=== PATIENT | female | born 1965 | race Caucasian/White ===

== ENCOUNTER → 2016-07-25 | Outpatient (CLI) | payer BC ==
--- NOTE | 2016-07-27 08:00 | MM ---
Reason for exam: screening (asymptomatic). Last mammogram was performed 1 year and 1 month ago. History: Family history of breast cancer in mother at age 76 and breast cancer in aunt. Physical Findings: A clinical breast exam by your physician is recommended on an annual basis and results should be correlated with mammographic findings. MG Screening Mammo w CAD Bilateral CC and MLO view(s) were taken. Prior study comparison: June 17, 2015, bilateral MG screening mammo w CAD. December 04, 2013, bilateral MG screening mammo w CAD. February 28, 2011, bilateral digital screening mammo w/CAD. The breast tissue is heterogeneously dense. This may lower the sensitivity of mammography. No significant changes when compared with prior studies. ASSESSMENT: Negative, BI-RAD 1 RECOMMENDATION: Routine screening mammogram of both breasts in 1 year.
== END | disposition home or self-care (01) ==
LOC: RADMAMWWP 16:49
PROVIDERS: ATTEND Obstetrics & Gynecology
DX: Z12.31 Encounter for screening mammogram for malignant neoplasm of breast (principal)

== ENCOUNTER → 2019-12-10 | Outpatient (CLI) | payer OTHER ==
--- NOTE | 2019-12-14 14:05 | MM ---
Reason for exam: screening (asymptomatic). Last mammogram was performed 2 years and 2 months ago. History: Family history of breast cancer in mother at age 76 and breast cancer in aunt. Physical Findings: A clinical breast exam by your physician is recommended on an annual basis and results should be correlated with mammographic findings. MG Screening Mammo w CAD Bilateral CC and MLO view(s) were taken. Prior study comparison: October 18, 2017, bilateral MG screening mammo w CAD. July 25, 2016, bilateral MG screening mammo w CAD. The breast tissue is heterogeneously dense. This may lower the sensitivity of mammography. No significant changes when compared with prior studies. ASSESSMENT: Benign, BI-RAD 2 RECOMMENDATION: Routine screening mammogram of both breasts in 1 year.
== END | disposition home or self-care (01) ==
LOC: RADMAMWWP 11:05
PROVIDERS: ATTEND Family Medicine
DX: Z12.31 Encounter for screening mammogram for malignant neoplasm of breast (principal)
CPT/HCPCS: 77067

== ENCOUNTER 2020-09-10 11:37 | Emergency (ER) | payer OTHER ==
[2020-09-10 11:48] VITALS: BP 165/106; PULSE 96; RESP 20; TEMP 98
[2020-09-10] MEDS ORDERED: ACETAMINOPHEN TAB 500 MG TAB PO STA (11:55)
--- NOTE | 2020-09-10 12:59 | XR ---
EXAMINATION TYPE: XR knee complete RT DATE OF EXAM: 09/10/2020 CLINICAL HISTORY: pain TECHNIQUE: Three views of the right knee are obtained. COMPARISON: None. FINDINGS: There is no acute fracture/dislocation. The tri-compartment joint spaces appear mildly na rrowed. Spurring superior patellar pole. The overlying soft tissue appears unremarkable. IMPRESSION: There is no acute fracture or dislocation.ICD 10 NO FRACTURE, INITIAL EVALUATION
--- NOTE | 2020-09-10 13:02 | ED ---
Lower Extremity Injury HPI - General Chief Complaint: Extremity Injury, Lower Stated Complaint: rt knee pain Time Seen by Provider: 09/10/20 11:50 Source: patient, RN notes reviewed Mode of arrival: ambulatory Limitations: no limitations - History of Present Illness Initial Comments: Patient is a 55-year-old female that presents to emergency room complaining of right knee pain. She notes that several days ago she hit her knee on a truck trailer hitch. She notes that her knee locked up. She notes that she did have syncopal episode but believes is due to low blood sugars as she did not eat anything that day and her last meal was the previous night at dinner. She denied any other issues or complaints at this time. She denied any chest pain short of breath headache nausea vomiting diarrhea constipation fever fatigue chills she did report some pain on full flexion of the right knee. - Related Data Allergies Allergy/AdvReac Type Severity Reaction Status Date / Time cephalexin [From Keflex] Allergy Rash/Hives Verified 09/10/20 11:48 Review of Systems ROS Statement: Those systems with pertinent positive or pertinent negative responses have been documented in the HPI. ROS Other: All systems not noted in ROS Statement are negative. Past Medical History Past Medical History: No Reported History History of Any Multi-Drug Resistant Organisms: None Reported Past Surgical History: Tubal Ligation Past Psychological History: No Psychological Hx Reported Smoking Status: Never smoker Past Alcohol Use History: Occasional Past Drug Use History: None Reported General Exam Limitations: no limitations General appearance: alert, in no apparent distress Head exam: Present: atraumatic, normocephalic, normal inspection Eye exam: Present: normal appearance, PERRL, EOMI. Absent: scleral icterus, conjunctival injection, periorbital swelling Neck exam: Present: normal inspection Respiratory exam: Present: normal lung sounds bilaterally. Absent: respiratory distress, wheezes, rales, rhonchi, stridor Cardiovascular Exam: Present: regular rate, normal rhythm, normal heart sounds. Absent: systolic murmur, diastolic murmur, rubs, gallop, clicks Right Knee exam: Present: normal inspection, full ROM (Some minimal pain on full flexion), tenderness (Just proximal the patella over the quadriceps.), swelling (Enema). Absent: abrasion, laceration, ecchymosis, deformity, crepitus, dislocation, erythema Neurological exam: Present: alert, oriented X3 Psychiatric exam: Present: normal affect, normal mood Skin exam: Present: warm, dry, intact, normal color. Absent: rash Course Vital Signs 09/10/20 11:44 Temperature 98.0 F Pulse Rate 96 Respiratory 20 Rate Blood Pressure 165/106 O2 Sat by Pulse 99 Oximetry Medical Decision Making - Medical Decision Making 55-year-old female complaining of right knee pain after hitting a trailer hitch several days ago. X-ray of the right knee, 1000 g of Tylenol ordered. X-ray negative for any acute fractures or dislocations. Case discussed with Dr. Melgar, patient can discharge home with follow-up to orthopedist. - Radiology Data Radiology results: report reviewed, image reviewed X-ray of the right knee: No acute fractures or dislocation seen. Disposition Clinical Impression: Contusion of right knee Disposition: HOME SELF-CARE Condition: Stable Instructions (If sedation given, give patient instructions): Knee Pain (ED) Additional Instructions: Please return to the Emergency Department if symptoms worsen or any other concerns. Follow-up with primary care and orthopedist in the next 1-2 days. Take Tylenol and Motrin as needed for pain. Rest ice compress elevate Is patient prescribed a controlled substance at d/c from ED?: No Referrals: Jalen Christensen MD [Primary Care Provider] - 1-2 days Harley Alba MD [STAFF PHYSICIAN] - 1-2 days Time of Disposition: 13:06
== END 2020-09-10 13:46 | disposition home or self-care (01) ==
LOC: EC 11:37
DX: S80.01XA Contusion of right knee, initial encounter (principal); Z88.1 Allergy status to other antibiotic agents; W22.8XXA Striking against or struck by other objects, initial encounter
CPT/HCPCS: 99283

== ENCOUNTER 2020-11-08 10:59 | Emergency (ER) | payer OTHER ==
[2020-11-08 11:41] VITALS: RESP 18
[2020-11-08] MEDS ORDERED: SODIUM CHLORIDE 0.9% 500 ML 500 ML IV STA (11:58)
[2020-11-08] MEDS ORDERED: HYDROmorphone 0.5 MG/0.5 ML SYRINGE IVP STA (11:58)
--- NOTE | 2020-11-08 12:24 | ED ---
General Adult HPI - General Chief complaint: Abdominal Pain Stated complaint: abd pain Time Seen by Provider: 11/08/20 11:55 Source: patient, RN notes reviewed, old records reviewed Mode of arrival: ambulatory Limitations: no limitations - History of Present Illness Initial comments: 55-year-old female presenting for evaluation of epigastric pain, right upper quadrant pain. Symptoms have been present for the past 3 days. Pain radiates to both upper shoulders. She has no previous history of CAD but does have family history. She states that the pain began after consuming 5 alcoholic beverages. No fever but she has had chills. No vomiting. - Related Data Previous Rx's Medication Instructions Recorded HYDROcodone/APAP 5-325MG [[place] 1 tab PO Q6HR PRN #12 tab 11/08/20 5-325] Allergies Allergy/AdvReac Type Severity Reaction Status Date / Time cephalexin [From Keflex] Allergy Rash/Hives Verified 11/08/20 11:41 Review of Systems ROS Statement: Those systems with pertinent positive or pertinent negative responses have been documented in the HPI. ROS Other: All systems not noted in ROS Statement are negative. Past Medical History Past Medical History: GERD/Reflux, Thyroid Disorder History of Any Multi-Drug Resistant Organisms: None Reported Past Surgical History: Tubal Ligation Past Psychological History: Anxiety Smoking Status: Never smoker Past Alcohol Use History: Occasional Past Drug Use History: None Reported General Exam Limitations: no limitations General appearance: alert, in no apparent distress Head exam: Present: atraumatic, normocephalic Eye exam: Present: normal appearance, PERRL ENT exam: Present: normal exam Neck exam: Present: normal inspection. Absent: tenderness, meningismus Respiratory exam: Present: normal lung sounds bilaterally. Absent: respiratory distress, wheezes Cardiovascular Exam: Present: regular rate, normal rhythm GI/Abdominal exam: Present: soft, tenderness (epigastric and right upper quadrant). Absent: distended, guarding Extremities exam: Present: normal inspection, normal capillary refill. Absent: pedal edema Neurological exam: Present: alert, oriented X3, CN II-XII intact. Absent: motor sensory deficit Psychiatric exam: Present: normal affect, normal mood Skin exam: Present: warm, dry, intact. Absent: cyanosis, diaphoretic Course Vital Signs 11/08/20 11/08/20 11:33 12:16 Temperature 97.9 F Pulse Rate 99 89 Respiratory 18 18 Rate Blood Pressure 173/109 165/96 O2 Sat by Pulse 97 96 Oximetry EKG Findings - EKG Comments: EKG Findings:: UG: Normal sinus rhythm, LVH, rate of 89, CO interval 150, QRS duration 86, QTC 447, no ST segment elevation. Medical Decision Making - Medical Decision Making 55-year-old female with right upper quadrant and epigastric abdominal pain for the past 3 days after drinking approximately 5 alcoholic beverages. Workup is initiated, I did workup her both from a car perspective with EKG and troponin which are both normal as well as abdominal pain. She has a mild elevation in amylase and lipase. She has a mild leukocytosis. Otherwise stable vitals. Ultrasound showing a normal gallbladder wall, no stones, no signs of acute cholecystitis or common bile duct disease. She's feeling better on reevaluation. We discussed clear liquid diet and return parameters. Patient will follow-up with her primary care physician. She will abstain from alcohol use. She will return with any worsening or changing symptoms. - Lab Data Result diagrams: 11/08/20 12:03 11/08/20 12:03 Lab Results 11/08/20 11/08/20 11/08/20 Range/Units 12:03 12:03 12:03 WBC 11.5 H (3.8-10.6) k/uL RBC 5.38 (3.80-5.40) m/uL Hgb 16.1 H (11.4-16.0) gm/dL Hct 48.1 H (34.0-46.0) % MCV 89.4 (80.0-100.0) fL MCH 29.9 (25.0-35.0) pg MCHC 33.4 (31.0-37.0) g/dL RDW 12.9 (11.5-15.5) % Plt Count 282 (150-450) k/uL MPV 7.5 Neutrophils % 77 % Lymphocytes % 14 % Monocytes % 4 % Eosinophils % 3 % Basophils % 1 % Neutrophils # 8.9 H (1.3-7.7) k/uL Lymphocytes # 1.6 (1.0-4.8) k/uL Monocytes # 0.5 (0-1.0) k/uL Eosinophils # 0.4 (0-0.7) k/uL Basophils # 0.1 (0-0.2) k/uL PT (9.0-12.0) sec INR (<1.2) APTT (22.0-30.0) sec Sodium 136 L (137-145) mmol/L Potassium 3.9 (3.5-5.1) mmol/L Chloride 101 (98-107) mmol/L Carbon Dioxide 24 (22-30) mmol/L Anion Gap 11 mmol/L BUN 11 (7-17) mg/dL Creatinine 0.65 (0.52-1.04) mg/dL Est GFR (CKD-EPI)AfAm >90 (>60 ml/min/1.73 sqM) Est GFR (CKD-EPI)NonAf >90 (>60 ml/min/1.73 sqM) Glucose 120 H (74-99) mg/dL Plasma Lactic Acid Thom (0.7-2.0) mmol/L Calcium 9.6 (8.4-10.2) mg/dL Total Bilirubin 0.7 (0.2-1.3) mg/dL AST 32 (14-36) U/L ALT 25 (4-34) U/L Alkaline Phosphatase 141 H (38-126) U/L Troponin I (0.000-0.034) ng/mL Total Protein 8.0 (6.3-8.2) g/dL Albumin 4.6 (3.5-5.0) g/dL Amylase 123 H (30-110) U/L Lipase 721 H (23-300) U/L Urine Color Yellow Urine Appearance Clear (Clear) Urine pH 6.0 (5.0-8.0) Ur Specific [place] 1.016 (1.001-1.035) Urine Protein 1+ H (Negative) Urine Glucose (UA) Negative (Negative) Urine Ketones Negative (Negative) Urine Blood Negative (Negative) Urine Nitrite Negative (Negative) Urine Bilirubin Negative (Negative) Urine Urobilinogen <2.0 (<2.0) mg/dL Ur Leukocyte Esterase Trace H (Negative) Urine RBC <1 (0-5) /hpf Urine WBC 3 (0-5) /hpf Ur Squamous Epith Cells 4 (0-4) /hpf Urine Bacteria Occasional H (None) /hpf Hyaline Casts 1 (0-2) /lpf Urine Mucus Rare H (None) /hpf 11/08/20 11/08/20 11/08/20 Range/Units 12:03 12:03 12:03 WBC (3.8-10.6) k/uL RBC (3.80-5.40) m/uL Hgb (11.4-16.0) gm/dL Hct (34.0-46.0) % MCV (80.0-100.0) fL MCH (25.0-35.0) pg MCHC (31.0-37.0) g/dL RDW (11.5-15.5) % Plt Count (150-450) k/uL MPV Neutrophils % % Lymphocytes % % Monocytes % % Eosinophils % % Basophils % % Neutrophils # (1.3-7.7) k/uL Lymphocytes # (1.0-4.8) k/uL Monocytes # (0-1.0) k/uL Eosinophils # (0-0.7) k/uL Basophils # (0-0.2) k/uL PT 9.8 (9.0-12.0) sec INR 0.9 (<1.2) APTT 24.1 (22.0-30.0) sec Sodium (137-145) mmol/L Potassium (3.5-5.1) mmol/L Chloride (98-107) mmol/L Carbon Dioxide (22-30) mmol/L Anion Gap mmol/L BUN (7-17) mg/dL Creatinine (0.52-1.04) mg/dL Est GFR (CKD-EPI)AfAm (>60 ml/min/1.73 sqM) Est GFR (CKD-EPI)NonAf (>60 ml/min/1.73 sqM) Glucose (74-99) mg/dL Plasma Lactic Acid Thom 1.0 (0.7-2.0) mmol/L Calcium (8.4-10.2) mg/dL Total Bilirubin (0.2-1.3) mg/dL AST (14-36) U/L ALT (4-34) U/L Alkaline Phosphatase (38-126) U/L Troponin I <0.012 (0.000-0.034) ng/mL Total Protein (6.3-8.2) g/dL Albumin (3.5-5.0) g/dL Amylase (30-110) U/L Lipase (23-300) U/L Urine Color Urine Appearance (Clear) Urine pH (5.0-8.0) Ur Specific [place] (1.001-1.035) Urine Protein (Negative) Urine Glucose (UA) (Negative) Urine Ketones (Negative) Urine Blood (Negative) Urine Nitrite (Negative) Urine Bilirubin (Negative) Urine Urobilinogen (<2.0) mg/dL Ur Leukocyte Esterase (Negative) Urine RBC (0-5) /hpf Urine WBC (0-5) /hpf Ur Squamous Epith Cells (0-4) /hpf Urine Bacteria (None) /hpf Hyaline Casts (0-2) /lpf Urine Mucus (None) /hpf Disposition Clinical Impression: Pancreatitis Disposition: HOME SELF-CARE Condition: Good Instructions (If sedation given, give patient instructions): Pancreatitis (ED) Additional Instructions: Please eat only clear liquids, maintain hydration at home. Return with any worsening or changing symptoms. Prescriptions: HYDROcodone/APAP 5-325MG [[place] 5-325] 1 tab PO Q6HR PRN #12 tab PRN Reason: Pain Is patient prescribed a controlled substance at d/c from ED?: No Referrals: Jalen Christensen MD [Primary Care Provider] - 1-2 days Time of Disposition: 13:59
[2020-11-08 12:26] LABS: Basophils # (A) 0.1 k/uL (0-0.2); Basophils % (A) 1 %; Eosinophils # (A) 0.4 k/uL (0-0.7); Eosinophils % (A) 3 %; HCT 48.1 % (34.0-46.0); HGB 16.1 gm/dL (11.4-16.0); Lymphocytes # (A) 1.6 k/uL (1.0-4.8); Lymphocytes % (A) 14 %; MCH 29.9 pg (25.0-35.0); MCHC 33.4 g/dL (31.0-37.0); MCV 89.4 fL (80.0-100.0); Mean Platelet Volume 7.5; Monocytes # (A) 0.5 k/uL (0-1.0); Monocytes % (A) 4 %; Neutrophils # (A) 8.9 k/uL (1.3-7.7); Neutrophils % (A) 77 %; Platelet Count 282 k/uL (150-450); RBC 5.38 m/uL (3.80-5.40); RDW 12.9 % (11.5-15.5); WBC 11.5 k/uL (3.8-10.6)
[2020-11-08 12:27] LABS: Appearance,Urine Clear (Clear); Bacteria,Urine Occasional /hpf; Bilirubin,Urine Negative (Negative); Blood,Urine Negative (Negative); Color,Urine Yellow; Glucose,Urine (UA) Negative (Negative); Hyaline Casts,Urine 1 /lpf (0-2); Ketones,Urine Negative (Negative); Leukocyte Esterase,Urine Trace (Negative); Mucus,Urine Rare /hpf; Nitrite,Urine Negative (Negative); Protein,Urine 1+ (Negative); RBC,Urine <1 /hpf (0-5); Specific Gravity,Urine 1.016 (1.001-1.035); Squamous Epithelial Cell,Urine 4 /hpf (0-4); Urobilinogen,Urine <2.0 mg/dL (<2.0); WBC,Urine 3 /hpf (0-5)
[2020-11-08 12:33] LABS: INR 0.9 (<1.2); Partial Thromboplastin Time 24.1 sec (22.0-30.0); Prothrombin Time 9.8 sec (9.0-12.0)
[2020-11-08 12:38] LABS: ALT 25 U/L (4-34); AST 32 U/L (14-36); African American GFR (CKD) >90 (>60 ml/min/1.73 sqM); Albumin 4.6 g/dL (3.5-5.0); Alkaline Phosphatase 141 U/L (38-126); Amylase 123 U/L (30-110); Anion Gap 11 mmol/L; Blood Urea Nitrogen 11 mg/dL (7-17); Calcium 9.6 mg/dL (8.4-10.2); Carbon Dioxide 24 mmol/L (22-30); Chloride 101 mmol/L (98-107); Glucose 120 mg/dL (74-99); Lipase 721 U/L (23-300); Non-African American GFR(CKD) >90 (>60 ml/min/1.73 sqM); Potassium 3.9 mmol/L (3.5-5.1); Sodium 136 mmol/L (137-145); Total Bilirubin 0.7 mg/dL (0.2-1.3)
--- NOTE | 2020-11-08 13:32 | US ---
EXAMINATION TYPE: US gallbladder DATE OF EXAM: 11/08/2020 COMPARISON: NONE CLINICAL HISTORY: ruq pain. x 3 days EXAM MEASUREMENTS: Liver Length: 16.0 cm Gallbladder Wall: 0.2 cm CBD: 0.4 cm Right Kidney: 11.9 x 5.3 x 4.9 cm Pancreas: Tail obscured by overlying bowel gas Liver: Simple appearing anterior liver cyst = 2.3 x 2.4 x 1.9 cm Gallbladder: distended with fold at fundus. No stones seen Evidence for sonographic Covington's sign: Yes CBD: wnl Right Kidney: No hydronephrosis or masses seen, Lateral mid pole cyst = 1.0 x 1.1 x 1.0 cm IMPRESSION: 1. Hepatic cyst. 2. Right renal cyst
[2020-11-08 14:28] VITALS: BP 147/89; PULSE 82; TEMP 97.8
== END 2020-11-08 14:28 | disposition home or self-care (01) ==
LOC: EC 10:59
DX: K85.90 Acute pancreatitis without necrosis or infection, unspecified (principal); K21.9 Gastro-esophageal reflux disease without esophagitis; Z88.1 Allergy status to other antibiotic agents
CPT/HCPCS: 36415; 93005; 80053; 82150; 83605; 83690; 84484; 85025; 85610; 85730; 81001; 76705; 96374; 99284; J1170

== ENCOUNTER → 2020-11-30 | Outpatient (CLI) | payer OTHER ==
--- NOTE | 2020-11-30 12:25 | NM ---
EXAMINATION TYPE: NM hepatobiliary w EF DATE OF EXAM: 11/30/2020 COMPARISON: NONE INDICATION: Abnormal liver function test TECHNIQUE: After the intravenous administration of 5.0 mCi Tc 99m Mebrofenin hepatobiliary scintigrap hy is performed. Images were obtained immediately post injection. FINDINGS: There is prompt uptake and excretion of radiotracer by the liver. Extrahepatic ducts are identified at 4 minutes. The gallbladder is visualized within 6 minutes. Small bowel activity is noted within 8 minutes. Some uptake within the right tip of the liver is not excluded. This was early in the examination and appears to resolve as the gallbladder fills. At one hour 8 ounces of oral ensure plus is given to mimic CCK and gallbladder ejection fraction is c alculated at 30 %, which is slightly low. (Normal >35% and <80%.). IMPRESSION: 1. Biliary hypokinesia.
== END | disposition home or self-care (01) ==
LOC: RADNMMAIN 06:50
PROVIDERS: ATTEND Family Medicine
DX: K83.8 Other specified diseases of biliary tract (principal)
CPT/HCPCS: 78226; A9537

== ENCOUNTER → 2022-09-20 | Outpatient (CLI) | payer OTHER ==
[2022-09-20 09:40] LABS: INR 0.9 (<1.2); Partial Thromboplastin Time 24.3 sec (22.0-30.0); Prothrombin Time 9.6 sec (9.0-12.0)
[2022-09-20 16:56] LABS: HCT 43.4 % (37.2-46.3); HGB 14.4 d/dL (12.0-15.0); MCH 29.8 pg (27.0-32.0); MCHC 33.2 d/dL (32.0-37.0); MCV 89.9 FL (80.0-97.0); Mean Platelet Volume 10.1 FL (9.5-12.2); NRBC Per 100 WBC 0 X 10*3/uL (0.00-0.01); Platelet Count 336 X 10*3/uL (140-440); RBC 4.83 X 10*6/uL (4.10-5.20); RDW 12.6 % (11.5-14.5); WBC 5.22 X 10*3/uL (4.50-10.00)
[2022-09-20 17:10] LABS: ALT 25 U/L (8-44); AST 26 U/L (13-35); Albumin 4.4 d/dL (3.8-4.9); Albumin/Globulin Ratio 1.63 Ratio (1.60-3.17); Alkaline Phosphatase 102 U/L (41-126); BUN/Creat Ratio 25.62 Ratio (12.00-20.00); Blood Urea Nitrogen 20.5 mg/dL (9.0-27.0); Calcium 9.8 mg/dL (8.7-10.3); Chloride 102 mmol/L (96-109); Globulin 2.7 d/dL (1.6-3.3); Glucose 97 mg/dL (70-110); Potassium 4.1 mmol/L (3.5-5.5); Sodium 138 mmol/L (135-145); Total Bilirubin 0.3 mg/dL (0.3-1.2); Total Protein 7.1 d/dL (6.2-8.2)
[2022-09-20 22:26] LABS: Appearance,Urine Clear (Clear); Bilirubin,Urine Negative (Negative); Blood,Urine Negative (Negative); Color,Urine Yellow (Yellow); Ketones,Urine Negative (Negative); Nitrite,Urine Negative (Negative); PH, Urine 6.5; Specific Gravity,Urine 1.019 (1.001-1.030); Urobilinogen,Urine 0.2 E.U./DL
[2022-09-20 22:39] LABS: Bacteria,Urine None Seen (None Seen)
== END | disposition home or self-care (01) ==
LOC: LABWHC1 08:12
PROVIDERS: ATTEND Orthopaedic Surgery
DX: Z01.812 Encounter for preprocedural laboratory examination (principal); M17.11 Unilateral primary osteoarthritis, right knee
CPT/HCPCS: 36415; 80053; 81001; 85027; 85610; 85730; 87070

== ENCOUNTER → 2022-09-20 | Outpatient (CLI) | payer OTHER ==
--- NOTE | 2022-09-21 08:39 | MM ---
Reason for Exam: Screening (asymptomatic). Last mammogram was performed 1 year(s) and 7 month(s) ago. Patient History: Menarche at age 12. First Full-Term at age 26. Postmenopausal. Maternal aunt had breast cancer, age 75. Mother had breast cancer, age 76. Risk Values: Johanna 5 year model risk: 2.5%. NCI Lifetime model risk: 14.9%. Prior Study Comparison: 10/18/2017 Bilateral Screening Mammogram, [facility]. 12/10/2019 Bilateral Screening Mammogram, [facility]. 02/21/2021 Bilateral Screening Mammogram, [facility]. Tissue Density: The breast tissue is heterogeneously dense. This may lower the sensitivity of mammography. Findings: Analyzed By CAD. There is no suspicious group of microcalcifications or new suspicious mass in either breast. Benign-appearing round calcifications within both breasts. Overall Assessment: Benign, BI-RAD 2 Management: Screening Mammogram of both breasts in 1 year. A clinical breast exam by your physician is recommended on an annual basis and results should be correlated with mammographic findings. Note on Johanna scores and lifetime risk: 1. A Johanna score greater than 3% is considered moderate risk. If this is the case, consider specialist referral to assess eligibility for a risk reducing agent. If overall lifetime risk for the development of breast cancer is 20% or higher, the patient may qualify for future screening with alternating mammogram and breast MRI. Electronically signed and approved by: Tulio Mauro D.O.
== END | disposition home or self-care (01) ==
LOC: RADMAMWWP 07:42
PROVIDERS: ATTEND Family Medicine
DX: Z12.31 Encounter for screening mammogram for malignant neoplasm of breast (principal); Z78.0 Asymptomatic menopausal state; Z80.3 Family history of malignant neoplasm of breast
CPT/HCPCS: 77067

== ENCOUNTER 2022-10-08 12:16 | Day surgery (SDC) | payer OTHER ==
[~2022-10-08 12:16] MED LIST: ACETAMINOPHEN TAB 500 MG TAB PO PRN; DEXAMETHASONE SOD PHOSPHATE 4 MG/ML 1 ML VIAL IV ONE; HYDROmorphone 0.5 MG/0.5 ML SYRINGE IVP PRN; LIDOCAINE 1% (10MG/ML) FOR IV START INTRADERMA PRN; MELOXICAM 7.5 MG TAB PO PRN; MIDAZOLAM 2 MG/2 ML VIAL IV PRN; ONDANSETRON 4 MG/2 ML VIAL IVP ONE; ONDANSETRON 4 MG/2 ML VIAL IVP PRN; TRANEXAMIC 1,000 MG/100ML-NACL 1,000 MG in SALINE 1 100ML.BAG IVPB PRN
[2022-10-08] MEDS: LACTATED RINGERS 1,000 ML IV SCH (14:20)
[2022-10-08] MEDS ORDERED: MIDAZOLAM 2 MG/2 ML VIAL IVP ONE (14:34)
[2022-10-08] MEDS ORDERED: fentaNYL (PF) 50 MCG/ML 2 ML AMP IVP ONE (14:34)
[2022-10-08] MEDS ORDERED: MAGNESIUM HYDROXIDE 2,400 MG/30 ML CUP PO PRN (14:40)
[2022-10-08] MEDS ORDERED: VANCOMYCIN 0 MG in SODIUM CHLORIDE 0.9% 250 ML IVPB ONE (14:40)
[2022-10-08] MEDS ORDERED: HYDROmorphone 0.5 MG/0.5 ML SYRINGE IVP PRN (14:40)
[2022-10-08] MEDS ORDERED: hydrOXYzine pamoate 25 MG CAP PO PRN (14:40)
[2022-10-08] MEDS ORDERED: NALOXONE 0.4 MG/ML 1 ML VIAL IV PRN (14:40)
[2022-10-08] MEDS ORDERED: HYDROcodone/APAP 5-325MG 1 EACH TAB PO PRN (14:40)
[2022-10-08] MEDS ORDERED: bisacodyL 10 MG SUPP RECTAL PRN (14:40)
[2022-10-08] MEDS ORDERED: TEMAZEPAM 15 MG CAP PO PRN (14:40)
[2022-10-08] MEDS ORDERED: ONDANSETRON 4 MG/2 ML VIAL IVP PRN (14:40)
[2022-10-08] MEDS ORDERED: HYDROmorphone 1 MG/ML 1 ML SYRINGE IVP PRN (14:40)
[2022-10-08] MEDS ORDERED: SODIUM CHLORIDE 0.9% (PF) 10 ML VIAL ONE (14:50)
[2022-10-08] MEDS ORDERED: fentaNYL (PF) 50 MCG/ML 2 ML AMP ONE (14:50)
[2022-10-08] MEDS ORDERED: GLYCOPYRROLATE 0.2 MG/ML 2 ML VIAL ONE (14:50)
[2022-10-08] MEDS ORDERED: ROPIVACAINE 5 MG/ML 30 ML VIAL ONE (14:50)
[2022-10-08] MEDS ORDERED: TRANEXAMIC 1,000 MG/100ML-NACL PREMIX BAG ONE (14:50)
[2022-10-08] MEDS ORDERED: PROPOFOL 10 MG/ML 20 ML VIAL IV ONE (14:50)
[2022-10-08] MEDS ORDERED: MIDAZOLAM 2 MG/2 ML VIAL ONE (14:50)
[2022-10-08] MEDS ORDERED: KETAMINE 10 MG/ML 20 ML VIAL ONE (14:50)
[2022-10-08] MEDS ORDERED: ceFAZolin 1,000 MG in SODIUM CHLORIDE 0.9% 1,000 ML IRRIGATION ONE (14:58)
--- NOTE | 2022-10-08 16:26 | P.OP ---
Date of Procedure: 10/08/22 Procedure(s) Performed: PREOPERATIVE DIAGNOSIS: Right knee severe osteoarthritis with genu varum POSTOPERATIVE DIAGNOSIS: Right knee severe osteoarthritis with genu varum OPERATION: Right knee cemented total replacement arthroplasty. ANESTHESIA: Spinal and Regional for postoperative pain control ESTIMATED BLOOD LOSS: 100 ml. QUALITY MANAGEMENT NURSE: Sobia Barraza PA-C (assistance with: patient positioning, retraction, exposure, hemostasis, leg positioning, implantation, irrigation, closure, dressing) COMPLICATIONS: None apparent. COMPONENTS IMPLANTED: Journey II BCS total knee system from [employer] [facility] [employer], [facility] INDICATIONS: Nena is a 57 year old female with a history of right knee osteoa rthritis. The patient's knee is end-stage, and conservative management has failed. The operation of knee replacement has been discussed at length in the office, as well as potential risks and complications. These are inclusive of, but not limited to: bleeding, infection, scarring, discomfort, blood vessel and nerve damage, need for further surgery, failure to relieve symptoms, persistence, recurrence, or worsening of problems, loosening, dislocation, wear, blood clot, pulmonary embolism, , gait dysfunction, stiffness, and other risks as discussed in the office. The patient elects to proceed and the consent form has been signed. PROCEDURE: The patient was taken to the operating room and positioned on the operating room table in the supine position. Anesthesia was initiated. Care was taken to make sure that all pressure points were adequately padded. The operative lower extremity was prepped and draped in the usual aseptic fashion using ChloraPrep. Ioban drape was used for the case and the patient received intravenous antibiotics within one hour of the incision. A pneumotourniquet and leg jalloh were used for the case. The limb was exsanguinated with an Esmarch bandage and the tourniquet was inflated to 275 mmHg. Time-out was called confirming the patient's identity, side, procedure and administration of antibiotics and tranexamic acid. The incision was then created midline directly over the right knee, carried down through skin and into the subcutaneous tissues and down to fascia. Full thickness subcutaneous medial flap was developed. Medial parapatellar art hrotomy was performed and the interior of the knee was inspected. There was end- stage osteoarthritis of the knee with a mild to moderate genu valgum type deformity. The fat pad was excised and proximal medial release on the tibia was completed using meticulous dissection and a curved osteotome. The anterior cruciate ligament was taken down. Note was made of significant attrition of the anterior and significant degenerative appearance of the cruciate ligaments. The exposure was excellent. The knee was flexed 90 degrees and the patella was everted. The [employer] pre- made distal cutting block was attached and pinned into position. The planned cut was analyzed visually and with the alignment gabe and found to be satisfactory without the need for any adjustment. The oscillating saw was then used to make the distal femoral cut and make the alignment holes for the 5 in 1 block. This cut was confirmed to be flat with the flat end of an osteotome. The 5 in 1 block was then used to create the anterior posterior condylar resections and the chamfer cuts. The retractors were placed around the tibia and the tibial surface was addressed. The [employer] pre-made guide was placed onto the exposed tibial surface and pinned into position to carlos enrique the rotational alignment. The alignment of the guide was checked for depth of plannned resection, slope, and varus valgus. Guide was confirmed to be in good position and the tibial cut was then created with protection of the posterior neurovascular structures and the collateral ligaments. The tibial cut surface was removed and sized. Spacer block technique was then used to confirm that the flexion and extension gaps were equal. Soft tissue releases and adjustment of the tibial and/or femoral cuts were made, as necessary, until the gaps were equal. This included release of the posterior cruciate ligament, which was excessively tight in this patient. Prior to placing trial components, anesthetic solution consisting of ropivicaine with epinephrine, ketorolac, and clonidine was injected carefully and methodically in a grid pattern using aspiration technique into the soft tissue around the knee circumferentially, starting with the deeper tissues first and progressing to fascia, and then finally the skin/subcutaneous tissue. Particular care was taken when injecting the posterior capsule, with avoidance of the midline posterior area. The trial components were inserted. The tibial tray was allowed to self center and the patella was noted to track very well. The position of the tibial component was marked and noted to be nearly exactly aligned with the pre-drilled holes from the [employer] guide. The tibia was then finished for a stemmed tibial component. Patellar resurfacing was performed using a reamer. The size of the required patellar component was estimated and the patellar surface was then reamed down to a residual thickness which would recreate the [place] thickness with the component. The exact placement of the patellar component was adjusted for position based on preoperative x-rays and intraoperative findings. Trial components were removed and the cut surfaces of the bone were pulse lavaged thoroughly and dried. Cement was mixed on the back table and applied to the final components. Cement was then applied to the tibial surface and pressurized into the surface using finger pressurization technique. The tibial component was then applied and excess cement was removed after it was impacted securely and noted to be flush with the cut surface. In similar fashion, the cement was applied to the cut femoral surface, pressurized in using finger pressurization and the component was impacted into place. Excess cement was removed. The polyethylene spacer was then implanted and locked into position. The patellar component was then applied in similar technique and a patellar clamp was used to hold the patella in place as the cement hardened. Once the cement had fully hardened, the knee was reinspected. Any other cement extrusion was removed and final kinematic testing showed range of motion from 0 to 130 degrees with excellent stability, both medially and laterally and appropriate alignment of the leg. Patellar tracking was excellent. The knee was then thoroughly pulse lavaged with normal saline. The tourniquet was deflated and hemostasis was obtained with electrocautery, topical Surgicell powder and IV tranexamic acid, 1 g given at the start of the operation and 1 g at the start of closure. Closure was with #2 Ethibond in the fascia/capsule and supplemented with #2 Quill, 2-0 Vicryl suture was used for the subcutaneous tissues and 3-0 Quill for the skin. Dermabond/Steri-Strips were then applied. A lightly compressive dressing was applied using Webril and an Janusz wrap. The pat ient was then transferred to stretcher and taken to the recovery room in stable condition. Sponge and needle counts were correct.
[2022-10-08] MEDS ORDERED: ROPIVACAINE 1,100 MG, SODIUM CHLORIDE 0.9% 500 ML 330 ML, EMPTY PAIN BALL 1 EACH MISCELLANE PRN ×2 (17:02)
--- NOTE | 2022-10-08 17:47 | P.ANPRN ---
Procedure Note - Anesthesia - Nerve Block Performed Right Adductor Canal Time Out Performed: Yes (:33) Date of Procedure: 10/08/22 Procedure Start Time: : Procedure Stop Time: : Location of Patient: PreOp Indication: Acute Post-Operative Pain, Requested by Surgeon (Dr Alba) Sedation Type: Sedate with meaningful contact maintained Preparation: Sterile Prep, Sterile Dressing Position: Supine Catheter: Indwelling Needle Types: Pajunk Needle Gauge: 21 Ultrasound used to visualize needle placement: Yes Ultrasound used to observe medication spread: Yes Injectate: 0.5% Ropivacaine (see comment for volume) (20cc) Blood Aspirated: No Pain Paresthesia on Injection Noted: No Resistance on Injection: Normal Events: Uneventful and Well Tolerated
--- NOTE | 2022-10-08 17:48 | P.ANPRN ---
Procedure Note - Anesthesia - Nerve Block Performed Right iPack Time Out Performed: Yes Date of Procedure: 10/08/22 Procedure Start Time: 14:43 Procedure Stop Time: 14:47 Location of Patient: PreOp Indication: Acute Post-Operative Pain, Requested by Surgeon (Dr Alba) Sedation Type: Sedate with meaningful contact maintained Preparation: Sterile Prep Position: Supine Catheter: None Needle Types: Pajunk Needle Gauge: 21 Ultrasound used to visualize needle placement: Yes Ultrasound used to observe medication spread: Yes Injectate: 0.5% Ropivacaine (see comment for volume) (15cc +5cc PF Normal saline) Blood Aspirated: No Pain Paresthesia on Injection Noted: No Resistance on Injection: Normal Image Stored and Saved: Yes Events: Uneventful and Well Tolerated
--- NOTE | 2022-10-08 18:03 | XR ---
EXAMINATION TYPE: XR knee limited RT DATE OF EXAM: 10/08/2022 5:29 PM INDICATION: Patient age:Female; 57 years old; Reason for study: Evaluation for Postop abnormality and alignment; PHH. COMPARISON: None. TECHNIQUE: The Right knee(s) was examined in Frontal, lateral projections. FINDINGS: Status post total knee arthroplasty changes with hardware in appropriate alignment and in tact. No evidence of fracture. Subcutaneous lucencies and lucencies within the joint consistent with surgical changes. IMPRESSION: Status post total knee arthroplasty changes with hardware intact and appropriate alignment. No fractu res identified.
[2022-10-08] MEDS: HYDROmorphone 0.5 MG/0.5 ML SYRINGE IVP PRN ×2 (19:00→21:46)
[2022-10-08] MEDS ORDERED: SENNOSIDES-DOCUSATE SODIUM 1 EACH TAB PO SCH (21:00)
[2022-10-08] MEDS: SODIUM CHLORIDE 0.9% 1,000 ML IV SCH ×2 (21:04→23:18)
[2022-10-08] MEDS: ASPIRIN 81 MG PO SCH (21:16)
[2022-10-08] MEDS: VENLAFAXINE HCL ER 75 MG CAP PO SCH (23:26)
[2022-10-09] MEDS: HYDROcodone/APAP 7.5-325MG 1 EACH TAB PO PRN ×2 (01:19→08:13)
[2022-10-09] MEDS: LACTATED RINGERS 1,000 ML IV SCH (05:31)
[2022-10-09] MEDS ORDERED: LEVOTHYROXINE 50 MCG TAB PO SCH ×2 (06:30→11:15)
[2022-10-09 07:13] VITALS: BP 115/74; PULSE 81; RESP 17; TEMP 97.9
[2022-10-09] MEDS: ASPIRIN 81 MG PO SCH (08:13)
[2022-10-09] MEDS: VENLAFAXINE HCL ER 75 MG CAP PO SCH (08:13)
[2022-10-09] MEDS ORDERED: MELOXICAM 7.5 MG TAB PO SCH (09:00)
[2022-10-09] MEDS ORDERED: BISOPROLOL-HCTZ 5-6.25 MG 1 EACH TAB PO SCH (09:00)
--- NOTE | 2022-10-09 09:14 | P.PN ---
Progress Note - Text The patient is status post[ right] adductor canal catheter placement. The catheter was placed for postoperative pain control, status post total [right knee ] arthroplasty. Ropivacaine 0.2% is infusing at[10 ] mLs per hour. The patient has no complaints of[ right] lower extremity numbness or weakness. Patient's VAS score is[4-5 ]-10. Assessment: Patient's adductor canal catheter is in place and working appropriately. Plan: continue infusion and adjust it as needed.
[2022-10-09 10:57] LABS: Basophils # (A) 0.04 X 10*3/uL (0.00-0.10); Basophils % (A) 0.4 %; Eosinophils # (A) 0.01 X 10*3/uL (0.04-0.35); Eosinophils % (A) 0.1 %; HCT 37.2 % (37.2-46.3); HGB 12.1 d/dL (12.0-15.0); Lymphocytes # (A) 1.18 X 10*3/uL (0.90-5.00); Lymphocytes % (A) 11.9 %; MCHC 32.5 d/dL (32.0-37.0); MCV 89.2 FL (80.0-97.0); Mean Platelet Volume 10.2 FL (9.5-12.2); Monocytes # (A) 0.66 X 10*3/uL (0.20-1.00); Monocytes % (A) 6.6 %; NRBC Per 100 WBC 0 X 10*3/uL (0.00-0.01); Neutrophils # (A) 8.01 X 10*3/uL (1.80-7.70); Neutrophils % (A) 80.7 %; Platelet Count 288 X 10*3/uL (140-440); RBC 4.17 X 10*6/uL (4.10-5.20); RDW 12.9 % (11.5-14.5); WBC 9.93 X 10*3/uL (4.50-10.00)
[2022-10-09] MEDS ORDERED: PANTOPRAZOLE 40 MG/10 ML VIAL IVP SCH (11:15)
--- NOTE | 2022-10-09 11:37 | P.DS ---
Providers Expected date of discharge: 10/09/22 Attending physician: Harley Alba Consults: 10/08/22 14:40 Consult Physician Routine Consulting Provider: Zaire Munguia Jr Consult Reason/Comments: Medical management Do you want consulting provider notified?: Yes Primary care physician: Zaire Munguia - Discharge Diagnosis(es) (1) Osteoarthritis of right knee Current Visit: Yes Status: Acute (2) S/P total knee arthroplasty Current Visit: Yes Status: Acute Hospital Course: This is a 57-year-old female with known history of degenerative arthritis of the right knee. The patient presented for evaluation as an outpatient. After discussion and consideration patient elects to proceed with total knee arthroplasty. The patient is seen preoperatively by Dr. Alba and medically cleared for surgery by their primary care physician. Patient is admitted to [facility] on 10/08/2022. For total knee arthroplasty. The procedure is performed without complication or sequelae. The patient is doing well postoperatively. Labs and vital signs are stable on day of discharge. On day of discharge patient's knee incision is healing well. There is minimal erythema. There is no drainage noted at this time. There is minimal soft tissue swelling to the knee. Patient has full foot and ankle motion without difficulty or pain. Calf is soft and nontender to palpation. Neurovascular status to the right lower extremity is intact. Patient is discharged home in good condition. Please see [facility] rec for accurate list of home medications. Plan - Discharge Summary Discharge Rx Participant: Yes New Discharge Prescriptions: New Aspirin [Adult Low Dose Aspirin EC] 81 mg PO BID #1 tab hydrOXYzine pamoate [Vistaril] 25 mg PO Q4-6H #30 capsule Ondansetron Odt [Zofran Odt] 4 mg PO Q8HR PRN #14 tab PRN Reason: Nausea Meloxicam 7.5 mg PO DAILY PRN #30 tab PRN Reason: Pain HYDROcodone/APAP 7.5-325MG [[place] 7.5-325] 1 - 2 tab PO Q6HR PRN #32 tab PRN Reason: Pain Sennosides-Docusate Sodium [Senokot-S] 1 tab PO BID #60 tablet No Action Multivitamins, Thera [Multivitamin (formulary)] 1 tab PO QAM Esomeprazole Magnesium [NexIUM] 20 mg PO QAM PRN PRN Reason: Indigestion Ascorbic Acid [Vitamin C] 500 mg PO QAM Venlafaxine HCl 75 mg PO HS Bisoprolol/Hydrochlorothiazide [Bisoprolol/Hydrochlorothiazide 5-6.25 mg] 1 tab PO QAM Levothyroxine Sodium [Synthroid] 50 mcg PO QAM Discharge Medication List Ascorbic Acid [Vitamin C] 500 mg PO QAM 10/01/22 [History] Bisoprolol/Hydrochlorothiazide [Bisoprolol/Hydrochlorothiazide 5-6.25 mg] 1 tab PO QAM 10/01/22 [History] Esomeprazole Magnesium [NexIUM] 20 mg PO QAM PRN 10/01/22 [History] Levothyroxine Sodium [Synthroid] 50 mcg PO QAM 10/01/22 [History] Multivitamins, Thera [Multivitamin (formulary)] 1 tab PO QAM 10/01/22 [History] Venlafaxine HCl 75 mg PO HS 10/01/22 [History] Aspirin [Adult Low Dose Aspirin EC] 81 mg PO BID #1 tab 10/08/22 [Rx] HYDROcodone/APAP 7.5-325MG [[place] 7.5-325] 1 - 2 tab PO Q6HR PRN #32 tab 10/08/22 [Rx] Meloxicam 7.5 mg PO DAILY PRN #30 tab 10/08/22 [Rx] Ondansetron Odt [Zofran Odt] 4 mg PO Q8HR PRN #14 tab 10/08/22 [Rx] Sennosides-Docusate Sodium [Senokot-S] 1 tab PO BID #60 tablet 10/08/22 [Rx] hydrOXYzine pamoate [Vistaril] 25 mg PO Q4-6H #30 capsule 10/08/22 [Rx] Follow up Appointment(s)/Referral(s): Sobia Barraza PAC [PHYSICIAN SENIOR ORACLE APPLICATIONS DEVELOPER] - 10/25/22 2:15 pm Zaire Munguia Jr, DO [Primary Care Provider] - 1 Week Activity/Diet/Wound Care/Special Instructions: May bear wt as tolerated with walker. May remove conchis wrap and stockings 48h post op and may shower. Remove optifoam dressing 7 days post op. Begin PT as directed. Discharge Disposition: HOME SELF-CARE
[2022-10-09] MEDS: SODIUM CHLORIDE 0.9% 1,000 ML IV SCH (12:13)
--- NOTE | 2022-10-09 14:11 | P.CONS ---
History of Present Illness - Reason for Consult Consult date: 10/09/22 Medical management hypertension gastroesophageal reflux disease, anxiety Requesting physician: Harley Alba - Chief Complaint Right knee osteoarthritis, status post surgical repair - History of Present Illness This is a pleasant 57-year-old female with past medical history significant for right knee osteoarthritis, gastroesophageal reflux disease, hypertension, hypothyroidism, pancreatitis, anxiety and multiple other medical issues status post right knee cemented total replacement arthroplasty. Tolerated procedure well. Passing flatus, no bowel movement. Pain currently controlled. Denies chest pain, palpitations or shortness of breath. Maintaining O2 sats in the 90s on room air. VSS. Afebrile, normal WBC. PT pending. Review of Systems Constitutional: Denied any fatigue denied any fever. Cardio vascular: denied any chest pain, palpitations Gastrointestinal denied any nausea vomiting Pulmonary: Denied any shortness of breath cough Neurologic denied any new focal deficits ROS Statement: Those systems with pertinent positive or pertinent negative responses have been documented in the HPI. ROS Other: All systems not noted in ROS Statement are negative. Past Medical History Past Medical History: GERD/Reflux, Hypertension, Thyroid Disorder Additional Past Medical History / Comment(s): 2021 pancreatitis History of Any Multi-Drug Resistant Organisms: None Reported Past Surgical History: Tubal Ligation Additional Past Surgical History / Comment(s): Colonoscopy Additional Past Anesthesia/Blood Transfusion Reaction / Comm: Pt has never received blood. Past Psychological History: Anxiety Additional Psychological History / Comment(s): Pt resides with spouse. Smoking Status: Never smoker Past Alcohol Use History: Rare Past Drug Use History: None Reported Medications and Allergies Home Medications Medication Instructions Recorded Confirmed Type Ascorbic Acid [Vitamin C] 500 mg PO QAM 10/01/22 10/08/22 History Bisoprolol/Hydrochlorothiazide 1 tab PO QAM 10/01/22 10/08/22 History [Bisoprolol/Hydrochlorothiazide 5-6.25 mg] Esomeprazole Magnesium [NexIUM] 20 mg PO QAM PRN 10/01/22 10/08/22 History Levothyroxine Sodium [Synthroid] 50 mcg PO QAM 10/01/22 10/08/22 History Multivitamins, Thera [Multivitamin 1 tab PO QAM 10/01/22 10/01/22 History (formulary)] Venlafaxine HCl 75 mg PO HS 10/01/22 10/08/22 History Aspirin [Adult Low Dose Aspirin EC] 81 mg PO BID #1 tab 10/08/22 Rx HYDROcodone/APAP 7.5-325MG [[place] 1 - 2 tab PO Q6HR PRN #32 tab 10/08/22 Rx 7.5-325] Meloxicam 7.5 mg PO DAILY PRN #30 tab 10/08/22 Rx Ondansetron Odt [Zofran Odt] 4 mg PO Q8HR PRN #14 tab 10/08/22 Rx Sennosides-Docusate Sodium 1 tab PO BID #60 tablet 10/08/22 Rx [Senokot-S] hydrOXYzine pamoate [Vistaril] 25 mg PO Q4-6H #30 capsule 10/08/22 Rx Allergies Allergy/AdvReac Type Severity Reaction Status Date / Time cephalexin [From Keflex] Allergy Rash/Hives Verified 10/08/22 13:40 Physical Exam Vitals: Vital Signs Temp Pulse Resp BP Pulse Ox 10/09/22 07:12 97.9 F 81 17 115/74 95 10/09/22 00:30 97.3 F L 72 18 101/64 91 L 10/08/22 19:50 97.8 F 80 16 125/75 10/08/22 18:58 69 16 140/71 97 10/08/22 18:00 80 16 112/71 94 L 10/08/22 17:45 66 119/67 97 10/08/22 17:30 76 16 117/71 92 L 10/08/22 17:13 73 16 110/70 95 10/08/22 16:54 96.8 F L 80 16 101/66 98 10/08/22 14:53 75 16 128/72 100 10/08/22 13:57 97.4 F L 82 16 154/93 98 Intake and Output 10/08/22 10/09/22 10/09/22 22:59 06:59 14:59 Intake Total 100 Output Total 100 Balance 0 Intake: IV 100 Output: Estimated Blood Loss 100 Other: # Voids 1 Weight 80.2 kg PHYSICAL EXAM: VITAL SIGNS: As above GENERAL: Sitting up in bed, no acute distress HEENT: Normocephalic, Conjunctivae normal. eyes normal. NECK: Supple, No JVD. No thyroid enlargement. No LNs CARDIOVASCULAR: S1, S2 regular.. No murmur RESPIRATION: Unlabored, equal air entry, Breath sounds diminished in the bases. No rhonchi or crackles. No bronchial breathing. ABDOMEN: Soft, nontender . No guarding. no masses palpable. No ascites, No hepatosplenomegaly.Bowel sounds heard. LEGS: Right lower extremity dressing clean dry and intact, minimal edema. No calf pain or tenderness. Positive DP pulse. PSYCHIATRY: Alert and oriented X3, mood and affect normal. NERVOUS SYSTEM: Cranial N 2-12 grossly normal. No focal deficits. Strength and sensation grossly intact. Skin: Warm and dry, no rash Results CBC & Chem 7: 10/09/22 07:17 Labs: Abnormal Lab Results - Last 24 Hours (Table) 10/09/22 Range/Units 07:17 Neutrophils # 8.01 H (1.80-7.70) X 10*3/uL Eosinophils # 0.01 L (0.04-0.35) X 10*3/uL Assessment and Plan Assessment: Osteoarthritis right knee, status post total arthroplasty Hypertension Hypothyroidism Gastroesophageal reflux disease Anxiety Obesity, BMI 31 Plan: Continue on current medication regime ,monitoring and symptomatic treatment. Pain management/anticoagulation as per primary. PT pending. Aggressive pulmonary toileting with incentive spirometer reinforced. Discharge planning in progress as per primary. Follow-up with PCP in one week. Thank you for the consult. The impression and plan of care has been dictated as directed. : I performed a history and examination of this patient, discussed the same with the dictator. I agree with the dictator's note ,documented as a scribe. Any additional findings or plans will be noted.
[2022-10-09] MEDS ORDERED: VENLAFAXINE HCL 75 MG TAB PO SCH ×2 (21:00)
== END 2022-10-09 13:00 | disposition home or self-care (01) ==
LOC: OR 12:16 → 4SSUR 16:44 → OR 10-09 13:00
PROVIDERS: ATTEND Orthopaedic Surgery
DX: M17.11 Unilateral primary osteoarthritis, right knee (principal); E03.9 Hypothyroidism, unspecified; K21.9 Gastro-esophageal reflux disease without esophagitis; F41.9 Anxiety disorder, unspecified; I10 Essential (primary) hypertension; Z98.51 Tubal ligation status; Z79.899 Other long term (current) drug therapy; Z79.890 Hormone replacement therapy; Z88.1 Allergy status to other antibiotic agents; Z79.82 Long term (current) use of aspirin
CPT/HCPCS: 97161; 64999; 64448; 85025; 73560; 27447; C1713; C1776; C1751; J2250; J1100; J0690 ×3; J2405; J3010; J2795; J2704; J1170

== ENCOUNTER 2022-10-22 12:37 | Emergency (ER) | payer OTHER ==
[2022-10-22 12:42] VITALS: BP 135/81; PULSE 112; RESP 20; TEMP 98.1
[2022-10-22] MEDS ORDERED: predniSONE 50 MG TAB PO STA (12:52)
--- NOTE | 2022-10-22 12:54 | ED ---
General Adult HPI - General Chief complaint: Skin/Abscess/Foreign Body Stated complaint: R leg rash Time Seen by Provider: 10/22/22 12:40 Source: patient, RN notes reviewed, old records reviewed Mode of arrival: ambulatory Limitations: no limitations - History of Present Illness Initial comments: This is a 57 about a rash on her right leg from her ankle up to her thigh. Patient states she had surgery on her knee 2 weeks ago and she has had a stocking on that leg but now she's had a rash for the last few days and is very itchy. Patient states she's been taking Benadryl for the itch but the rash continues.. Patient denies rash on any other part of body patient denies any difficulty breathing shortness of breath. Patient denies any swallowing p ounds.-year-old female who presents emergency Department complaining - Related Data Home Medications Medication Instructions Recorded Confirmed Ascorbic Acid [Vitamin C] 500 mg PO QAM 10/01/22 10/08/22 Bisoprolol/Hydrochlorothiazide 1 tab PO QAM 10/01/22 10/08/22 [Bisoprolol/Hydrochlorothiazide 5-6.25 mg] Esomeprazole Magnesium [NexIUM] 20 mg PO QAM PRN 10/01/22 10/08/22 Levothyroxine Sodium [Synthroid] 50 mcg PO QAM 10/01/22 10/08/22 Multivitamins, Thera [Multivitamin 1 tab PO QAM 10/01/22 10/01/22 (formulary)] Venlafaxine HCl 75 mg PO HS 10/01/22 10/08/22 Previous Rx's Medication Instructions Recorded Aspirin [Adult Low Dose Aspirin EC] 81 mg PO BID #1 tab 10/08/22 HYDROcodone/APAP 7.5-325MG [[place] 1 - 2 tab PO Q6HR PRN #32 tab 10/08/22 7.5-325] Meloxicam 7.5 mg PO DAILY PRN #30 tab 10/08/22 Ondansetron Odt [Zofran Odt] 4 mg PO Q8HR PRN #14 tab 10/08/22 Sennosides-Docusate Sodium 1 tab PO BID #60 tablet 10/08/22 [Senokot-S] hydrOXYzine pamoate [Vistaril] 25 mg PO Q4-6H #30 capsule 10/08/22 predniSONE [Deltasone] 40 mg PO DAILY #8 tab 10/22/22 Allergies Allergy/AdvReac Type Severity Reaction Status Date / Time cephalexin [From Keflex] Allergy Rash/Hives Verified 10/22/22 12:41 Review of Systems ROS Statement: Those systems with pertinent positive or pertinent negative responses have been documented in the HPI. ROS Other: All systems not noted in ROS Statement are negative. Past Medical History Past Medical History: GERD/Reflux, Hypertension, Thyroid Disorder Additional Past Medical History / Comment(s): 2021 pancreatitis History of Any Multi-Drug Resistant Organisms: None Reported Past Surgical History: Joint Replacement, Orthopedic Surgery, Tubal Ligation Additional Past Surgical History / Comment(s): Colonoscopy Additional Past Anesthesia/Blood Transfusion Reaction / Comment(s): Pt has never received blood. Past Psychological History: Anxiety Smoking Status: Never smoker Past Alcohol Use History: Rare Past Drug Use History: None Reported General Exam - General Exam Comments Initial Comments: GENERAL Patient is well-developed and well-nourished. Patient is in mild distress. EYES Patient's pupils are equal and round. Extraocular motion is intact SKIN Patient has what appears to be contact dermatitis on the left leg from the ankle to the mid thigh there is no rash on the foot and no rash in any other part of body. NEURO The patient is alert and oriented 3 PYSCH Patient has normal interpersonal interactions. MUSCULOSKELETAL Patient can move all 4 extremities. Limitations: no limitations Course Vital Signs 10/22/22 12:38 Temperature 98.1 F Pulse Rate 112 H Respiratory 20 Rate Blood Pressure 135/81 O2 Sat by Pulse 99 Oximetry Medical Decision Making - Medical Decision Making Was pt. sent in by a medical professional or institution (, PA, COSMETICS DEMONSTRATOR, urgent care, hospital, or care home...) When possible be specific @ -No Did you speak to anyone other than the patient for history (EMS, parent, family, police, friend...)? What history was obtained from this source @ -No Did you review nursing and triage notes (agree or disagree)? Why? @ -I reviewed and agree with nursing and triage notes Were old charts reviewed (outside hosp., previous admission, EMS record, old EKG, old radiological studies, urgent care reports/EKG's, care home records)? Report findings @ -No old charts were reviewed Differential Diagnosis (chest pain, altered mental status, abdominal pain women, abdominal pain men, vaginal bleeding, weakness, fever, dyspnea, syncope, headache, dizziness, GI bleed, back pain, seizure, CVA, palpatations, mental health, musculoskeletal)? @ -ALLERGIC reaction, contact dermatitis, viral exanthem. EKG interpreted by me (3pts min.). @ -As above X-rays interpreted by me (1pt min.). @ -None done CT interpreted by me (1pt min.). @ -None done U/S interpreted by me (1pt. min.). @ -None done What testing was considered but not performed or refused? (CT, X-rays, U/S, labs)? Why? @ -None What meds were considered but not given or refused? Why? @ -None Did you discuss the management of the patient with other professionals (professionals i.e. , PA, COSMETICS DEMONSTRATOR, lab, RT, psych nurse, social science teacher, jewel setter, teacher, access control officer, continuous pillowcase cutter)? Give summary @ -No Was smoking cessation discussed for >3mins.? @ -No Was critical care preformed (if so, how long)? @ -No Were there social determinants of health that impacted care today? How? (Homelessness, low income, unemployed, alcoholism, drug addiction, transportation, low edu. Level, literacy, decrease access to med. care, nursing home, rehab)? @ -No Was there de-escalation of care discussed even if they declined (Discuss DNR or withdrawal of care, Hospice)? DNR status @ -No What co-morbidities impacted this encounter? (DM, HTN, Smoking, COPD, CAD, Cancer, CVA, ARF, Chemo, Hep., AIDS, mental health diagnosis, sleep apnea, morbid obesity)? @ -None Was patient admitted / discharged? Hospital course, mention meds given and route, prescriptions, significant lab abnormalities, going to OR and other pertinent info. @ -Was given starts in the emergency department for the itchy rash which was continued only to the right leg. Undiagnosed new problem with uncertain prognosis? @ -No Drug Therapy requiring intensive monitoring for toxicity (Heparin, Nitro, Insulin, Cardizem)? @ -No Were any procedures done? @ -No Diagnosis/symptom? @ -Contact dermatitis Acute, or Chronic, or Acute on Chronic? @ -Acute Uncomplicated (without systemic symptoms) or Complicated (systemic symptoms)? @ -Uncomplicated Side effects of treatment? @ -No Exacerbation, Progression, or Severe Exacerbation? @ -No Poses a threat to life or bodily function? How? (Chest pain, [place], [place], pneumonia, PE, COPD, DKA, ARF, appy, cholecystitis, CVA, Diverticulitis, Homicidal, Suicidal, threat to staff... and all critical care pts) @ -No Disposition Clinical Impression: Contact dermatitis Disposition: HOME SELF-CARE Instructions (If sedation given, give patient instructions): Contact Dermatitis (ED) Prescriptions: predniSONE [Deltasone] 40 mg PO DAILY #8 tab Is patient prescribed a controlled substance at d/c from ED?: No Referrals: Zaire Munguia Jr, DO [Primary Care Provider] - 1-2 days Time of Disposition: 12:54
== END 2022-10-22 13:25 | disposition home or self-care (01) ==
LOC: EC 12:37
DX: L25.9 Unspecified contact dermatitis, unspecified cause (principal); E07.9 Disorder of thyroid, unspecified; I10 Essential (primary) hypertension; K21.9 Gastro-esophageal reflux disease without esophagitis; F41.9 Anxiety disorder, unspecified; Z79.890 Hormone replacement therapy; Z79.899 Other long term (current) drug therapy; Z88.1 Allergy status to other antibiotic agents
CPT/HCPCS: 99282; J7512

== ENCOUNTER → 2022-12-17 | Outpatient (CLI) | payer OTHER ==
--- NOTE | 2022-12-18 07:26 | US ---
EXAMINATION TYPE: US thyroid st tissue head/neck DATE OF EXAM: 12/17/2022 COMPARISON: NONE CLINICAL INDICATION: Female, 57 years old with history of R59.0 LOCALIZED ENLARGED LYMPH NODES; Pt st ates palpable lumps right lateral neck x 6 months Multiple probable lymph nodes right lateral neck in area of pt's palpable #1)- 0.6 x 0.5 x 0.3 cm #2)- 0.7 x 0.4 x 0.4 cm #3)- 3.2 x 1.0 x 1.0 cm with a 0.4 cm cortex thickness IMPRESSION: 1. One borderline enlarged lymph node. Additional small lymph nodes in the right neck.
== END | disposition home or self-care (01) ==
LOC: RADUSWWP 16:46
PROVIDERS: ATTEND Family Medicine
DX: R59.0 Localized enlarged lymph nodes (principal)
CPT/HCPCS: 76536

== ENCOUNTER → 2023-01-04 | Outpatient (CLI) | payer OTHER ==
--- NOTE | 2023-01-04 13:07 | CT ---
EXAMINATION TYPE: CT soft tissue neck w con DATE OF EXAM: 01/04/2023 COMPARISON: Neck ultrasound 12/17/2022 HISTORY: 57-year-old female R59, lymphadenopathy, right jaw lump bb placed over area TECHNIQUE: Contiguous axial scanning of the soft tissues of the neck performed with IV Contrast, mounika ent injected with 100 mL of Isovue 300 coronal and sagittal reconstructions performed. CT DLP: 402.4 mGycm Automated exposure control for dose reduction was used. FINDINGS: Visualized intracranial structures, orbits and globes, paranasal sinuses, and mastoid air cells are c lear. Leftward nasal septal deviation. The nasopharynx is clear. Mild to moderate hypertrophy of the bilateral palatine tonsils. There are calcifications on both side s measuring up to 4 mm suggesting sequela of prior infection. Mild lingual tonsillar hypertrophy. The epiglottis and prevertebral soft tissues are satisfactory. Glottic and subglottic structures as well as the tracheal column and visualized upper lungs are clear . The thyroid gland, submandibular glands, and parotid glands are satisfactory. There is a palpable marker placed just below the patient's right jaw line. There is a superficial lym ph node directly underlying the palpable marker measuring 8 mm. There are multiple mildly enlarged left submandibular space lymph nodes measuring up to 1.1 cm. Thickened and borderline enlarged right station 2A lymph node measuring 2.6 x 1.4 cm, axial image 63 and coronal image 34. No additional cervical lymphadenopathy is identified in the mid or lower neck. Moderate spondylotic change mid to lower cervical spine. Degenerative grade 1 anterolisthesis C3-C4. Reversal of the normal cervical lordosis. IMPRESSION: 1. PALPABLE MARKER BELOW THE PATIENT'S RIGHT JAW LINE. UNDERLYING THE PALPABLE MARKER, THERE IS A PRO MINENT SUPERFICIAL LYMPH NODE MEASURING 8 MM. 2. CLUSTERED ENLARGED LEFT SUBMANDIBULAR SPACE LYMPH NODES MEASURING UP TO 1.1 CM. 3. ADDITIONAL BORDERLINE ENLARGED RIGHT STATION 2A LYMPH NODE MEASURING 1.4 CM SHORT AXIS. THESE MAY BE REACTIVE/POST INFLAMMATORY. RECOMMEND CLINICAL AND ULTRASOUND FOLLOW-UP. IF THERE IS ANY PROGRESSI VE ENLARGEMENT OR SUSPICIOUS CLINICAL FEATURES DEVELOP, TISSUE SAMPLING CAN BE CONSIDERED.
== END | disposition home or self-care (01) ==
LOC: RADCTMAIN 09:49
PROVIDERS: ATTEND Family Medicine
DX: R59.0 Localized enlarged lymph nodes (principal)
CPT/HCPCS: 70491; Q9967

== ENCOUNTER 2023-03-15 08:50 | Day surgery (SDC) | payer OTHER ==
[2023-03-15 10:01] VITALS: RESP 18; TEMP 97.9
--- NOTE | 2023-03-15 11:13 | US ---
EXAMINATION TYPE: US FNA first lesion DATE OF EXAM: 03/15/2023 10:48 AM CLINICAL INDICATION:Female, 57 years old with history of R59.0 LOCALIZED ENLARGED LYMPH NODES; , thyr oid nodule. COMPARISON: CT 01/04/2023. ATTENDING: Dr. Mal Pollard PROCEDURE: Informed consent was obtained. The risks and benefits of the procedure were discussed with the patien t. The site was marked. Timeout procedure was performed Ultrasound imaging of the thyroid demonstrates right submandibular enlarged lymph node. The patient was prepped, draped in the usual sterile fashion, and locally anesthetized with 1% lidoca ine. Five fine needle aspiration were then performed with a 25 gauge needle. Samples were sent to [facility] pathology department for further analysis. Patient tolerated the procedure without incident and wa s sent home in stable condition. IMPRESSION: Successful ultrasound guided fine needle aspiration.
[2023-03-15 11:20] VITALS: BP 132/85; PULSE 64
== END 2023-03-15 11:00 | disposition home or self-care (01) ==
LOC: RADPROMAIN 08:50
PROVIDERS: ATTEND Otolaryngology
DX: R59.0 Localized enlarged lymph nodes (principal); E04.1 Nontoxic single thyroid nodule
CPT/HCPCS: 10005; 88173; 88305